=== PATIENT | female | born 1945 | race Hispanic/Latino ===

== ENCOUNTER → 2017-12-22 | Outpatient (CLI) | payer MEDICARE | END | disposition home or self-care (01) | LOC: OIH 11:16 | PROVIDERS: ATTEND Internal Medicine | DX: R07.89 Other chest pain (principal); F31.89 Other bipolar disorder | CPT/HCPCS: 71046 ==

== ENCOUNTER → 2018-03-24 | Outpatient (CLI) | payer MEDICARE | END | disposition home or self-care (01) | LOC: OIH 09:24 | PROVIDERS: ATTEND Internal Medicine | DX: M54.5 Low back pain (principal); I70.0 Atherosclerosis of aorta | CPT/HCPCS: 72100 ==

== ENCOUNTER → 2019-11-10 | Outpatient (CLI) | payer MEDICARE | END | disposition home or self-care (01) | LOC: OIH 10:15 | PROVIDERS: ATTEND Internal Medicine | DX: Z96.642 Presence of left artificial hip joint (principal); M25.552 Pain in left hip; I70.0 Atherosclerosis of aorta | CPT/HCPCS: 73502 ==